=== PATIENT | male | born 1930 | race Caucasian/White ===

== ENCOUNTER 2016-04-17 09:51 | Emergency (ER) | payer MEDICARE, OTHER ==
[~2016-04-17] VITALS: Ht 165.1 cm; Wt 56.7 kg
[~2016-04-17 09:51] MED LIST: AMOX-263 PO; ASPI-498 PO; CLOP75TA28 PO; DILT-11 PO; FENO145T20 PO; FER325T PO; FLUT250M2 IN; FURO80TA PO; GLIP-116 PO; LIS5T PO; MET50T PO; OMEP20CA5 PO; POT20T PO; POTA20TA53 PO; SIMV-13 PO; [UNRECOGNIZED DRUG - CODE] OR
[2016-04-17 11:00] VITALS: BP 141/62
== END 2016-04-17 11:30 | disposition home or self-care (01) ==
LOC: ER 09:51
DX: N39.0 Urinary tract infection, site not specified (principal); N48.1 Balanitis; I50.9 Heart failure, unspecified; N18.9 Chronic kidney disease, unspecified; I13.0 Hypertensive heart and chronic kidney disease with heart failure and stage 1 through stage 4 chronic kidney disease, or unspecified chronic kidney disease; E11.22 Type 2 diabetes mellitus with diabetic chronic kidney disease; Z79.899 Other long term (current) drug therapy; Z79.82 Long term (current) use of aspirin; F17.210 Nicotine dependence, cigarettes, uncomplicated

== ENCOUNTER 2016-07-10 20:30 | Emergency (ER) | payer MEDICARE, OTHER ==
[~2016-07-10] VITALS: Ht 165.1 cm; Wt 56.7 kg
[2016-07-10 20:42] VITALS: BP 136/66
[2016-07-10 21:18] LABS: Basophils # (auto) 0 uL; Basophils % (auto) 0.2 % (0.0-2.0); Eosinophils # (auto) 0.2 uL; Eosinophils % (auto) 2.6 % (0.0-7.0); Hematocrit 40.8 % (41.0-53.0); Hemoglobin 13.7 g/dL (13.5-17.5); Lymphocytes % (auto) 24.8 % (10.0-50.0); Mean Corpuscular Hgb Conc. 33.6 g/dL (32.0-36.0); Mean Corpuscular Volume 89.2 fL (80.0-100.0); Mean Platelet Volume 8.2 fL (7.4-10.4); Monocytes # (auto) 0.6 uL; Monocytes % (auto) 7.4 % (0.0-12.0); Neutrophils # (auto) 5.2 uL; Platelet Count (auto) 353 10^3/uL (140-450); Red Cell Distribution Width 16.2 % (11.6-16.0); White Blood Cell 8.1 10^3/uL (4.4-10.8)
[2016-07-10 21:41] LABS: Albumin 3.2 g/dL (3.4-5.0); Calcium 8.7 mg/dL (8.5-10.1); Potassium 4.1 mmol/L (3.5-5.1)
[2016-07-10 21:44] LABS: Bilirubin, Total 0.3 mg/dL (0.2-1.0); Total Protein 8.6 g/dL (6.4-8.2)
== END 2016-07-11 01:39 | disposition left against medical advice (07) ==
LOC: ER 20:34
DX: T83.9XXA Unspecified complication of genitourinary prosthetic device, implant and graft, initial encounter (principal); I13.0 Hypertensive heart and chronic kidney disease with heart failure and stage 1 through stage 4 chronic kidney disease, or unspecified chronic kidney disease; N18.9 Chronic kidney disease, unspecified; I50.9 Heart failure, unspecified; J44.9 Chronic obstructive pulmonary disease, unspecified; E11.9 Type 2 diabetes mellitus without complications; I25.2 Old myocardial infarction; F17.210 Nicotine dependence, cigarettes, uncomplicated; Z90.49 Acquired absence of other specified parts of digestive tract; Z53.29 Procedure and treatment not carried out because of patient's decision for other reasons
CPT/HCPCS: 36415; 80053; 85025

== ENCOUNTER 2017-04-05 15:21 | Inpatient (IN) | payer OTHER ==
[~2017-04-05] VITALS: Ht 165.1 cm; Wt 50.3 kg
[~2017-04-05 15:21] MED LIST changes: -FENO145T20 PO; +FENO1TAB42 PO; -OMEP20CA5 PO; +OMEP20CA74 PO
[2017-04-05] MEDS ORDERED: SODIUM CHLORIDE 0.9% 1,000 ML IV ONE (15:53)
[2017-04-05] MEDS ORDERED: cefTRIAXone 1GM/10ml IVPUSH 10 ML IV ONE (16:00)
[2017-04-05] MEDS ORDERED: methylPREDNISolone SOD SUCC 125 MG/2 ML VL IV ONE (16:00)
[2017-04-05] MEDS ORDERED: InsuLIN REG 1unit/0.01ml Soln (100units/ml) IV ONE (16:15)
[2017-04-05 17:42] LABS: Basophils # (auto) 0.1 uL; Basophils % (auto) 1.2 % (0.0-2.0); Eosinophils # (auto) 0 uL; Eosinophils % (auto) 0.5 % (0.0-7.0); Hematocrit 37.4 % (41.0-53.0); Hemoglobin 12.8 g/dL (13.5-17.5); Lymphocytes # (auto) 1.6 uL; Lymphocytes % (auto) 19.6 % (10.0-50.0); Mean Corpuscular Hemoglobin 30.4 pg (28.0-32.0); Mean Corpuscular Hgb Conc. 34.3 g/dL (32.0-36.0); Mean Corpuscular Volume 88.6 fL (80.0-100.0); Monocytes # (auto) 0.6 uL; Monocytes % (auto) 7.5 % (0.0-12.0); Neutrophils % (auto) 71.2 % (37.0-80.0); Nucleated Red Blood Cells % 0.3 %; Platelet Count (auto) 227 10^3/uL (140-450); Red Blood Cells 4.22 10^6/uL (4.5-5.90); White Blood Cell 8.4 10^3/uL (4.4-10.8)
[2017-04-05 17:57] LABS: INR 1.05 (0.9-1.15); Partial Thromboplastin Time 27.7 sec (22.64-33.71); Prothrombin Time 11.5 sec (9.37-12.3)
[2017-04-05 18:05] LABS: Alanine Aminotransferase 13 U/L (16-61); Albumin 2.8 g/dL (3.4-5.0); Alkaline Phosphatase 72 U/L (45-117); Anion Gap 8 (5-15); Aspartate Aminotransferase 13 U/L (15-37); BUN/Creatinine Ratio 26.8; Bilirubin, Total 0.3 mg/dL (0.2-1.0); Blood Urea Nitrogen 34 mg/dL (7-18); Calcium 8.6 mg/dL (8.5-10.1); Carbon Dioxide 27 mmol/L (21-32); Chloride 101 mmol/L (98-107); GFR African American 69 mL/min; GFR Non-African American 57 mL/min; Glucose 357 mg/dL (74-106); Sodium 136 mmol/L (136-145); Total Protein 7.4 g/dL (6.4-8.2)
[2017-04-05 18:09] LABS: Potassium 2.9 mmol/L (3.5-5.1)
[2017-04-05] MEDS ORDERED: POTASSIUM CHL 10% (20 MEQ/15ML) 15ml ORAL SOLN PO ONE (18:30)
[2017-04-05] MEDS ORDERED: IPRATROPIUM BROM 0.5 MG/2.5ML INH SOL NEB ONE (18:45)
[2017-04-05] MEDS ORDERED: ALBUTEROL SULF 2.5 MG/0.5ML(0.5%) NEB SOLN NEB ONE (18:45)
[2017-04-05] MEDS ORDERED: LACTULOSE 20Gm/30ML SOLN PO PRN (19:15)
[2017-04-05] MEDS ORDERED: PROMETHAZINE HCL 25 MG/ML 1ML IV PRN (19:15)
[2017-04-05] MEDS ORDERED: ALBUTEROL SULF 2.5 MG/0.5ML(0.5%) NEB SOLN NEB PRN (19:15)
[2017-04-05] MEDS ORDERED: MORPHINE SULFATE 10 MG/ML INJ 1ML SDV IV PRN ×2 (19:15)
[2017-04-05] MEDS ORDERED: NITROGLYCERIN 0.4 MG SL TAB SL PRN (19:15)
[2017-04-05] MEDS ORDERED: LORazepam 0.5 MG TAB PO PRN (19:15)
[2017-04-05] MEDS ORDERED: DEXTROSE (50%) 50ML SYRG IV PRN (19:15)
[2017-04-05] MEDS ORDERED: HYDROcodone-ACET 5/325MG TAB PO PRN (19:15)
[2017-04-05] MEDS ORDERED: ACETAMINOPHEN 500 MG TAB PO PRN (19:15)
[2017-04-05] MEDS ORDERED: TEMAZEPAM 15 MG CAP PO PRN (19:15)
[2017-04-05] MEDS: SODIUM CHLORIDE 0.9% 1,000 ML IV SCH (19:30)
[2017-04-05] MEDS ORDERED: OSELTAMIVIR 30 MG CAP PO ONE (19:45)
[2017-04-05] MEDS ORDERED: ASPirin 81 mg TAB PO ONE (19:45)
[2017-04-05] MEDS: DOXYCYCLINE HYC 100MG/250ML 250 ML IV SCH (19:45)
[2017-04-05] MEDS: ACCU-CHEK COMFORT CURVE STRIP VI SCH (20:30)
[2017-04-05] MEDS: InsuLIN REG 1unit/0.01ml Soln (100units/ml) SC SCH (20:53)
[2017-04-05 21:00] VITALS: BP 126/64
[2017-04-05] MEDS: ENOXAPARIN SOD 40 MG/0.4 ML SYRINGE SC SCH (21:00)
[2017-04-05 21:54] VITALS: BP 126/64
[2017-04-05] MEDS ORDERED: InsuLIN REG 1unit/0.01ml Soln (100units/ml) SC SCH (22:00)
[2017-04-05] MEDS: methylPREDNISolone SOD SUCC 40 MG/ML VL IV SCH (22:00)
[2017-04-06] VITALS (8 sets, daily range): BP systolic 126–144; BP diastolic 52–74
[2017-04-06] MEDS ORDERED: methylPREDNISolone SOD SUCC 40 MG/ML VL IV SCH
[2017-04-06] MEDS: ACCU-CHEK COMFORT CURVE STRIP VI SCH ×7 (00:23→23:56)
[2017-04-06] MEDS: ALBUTEROL SULF 2.5 MG/0.5ML(0.5%) NEB SOLN NEB SCH ×4 (01:15→18:00)
[2017-04-06] MEDS: IPRATROPIUM BROM 0.5 MG/2.5ML INH SOL NEB SCH ×4 (01:15→18:00)
[2017-04-06] MEDS: InsuLIN REG 1unit/0.01ml Soln (100units/ml) SC SCH ×6 (04:00→20:00)
[2017-04-06] MEDS: DOXYCYCLINE HYC 100MG/250ML 250 ML IV SCH (09:13)
[2017-04-06] MEDS: ASPirin 81 mg TAB PO SCH (09:13)
[2017-04-06] MEDS: SODIUM CHLORIDE 0.9% 1,000 ML IV SCH (09:14)
[2017-04-06] MEDS: methylPREDNISolone SOD SUCC 40 MG/ML VL IV SCH ×2 (09:15→21:49)
[2017-04-06] MEDS ORDERED: OSELTAMIVIR 30 MG CAP PO SCH (10:00)
[2017-04-06] MEDS ORDERED: LISINOPRIL 5 MG TAB PO ONE (12:00)
[2017-04-06] MEDS ORDERED: INSULIN DETEMIR(LEVEMIR) 1unit/0.01ml Soln (100units/ml) SC ONE (12:00)
[2017-04-06 13:00] LABS: BUN/Creatinine Ratio 27.1; Calcium 8.2 mg/dL (8.5-10.1); Potassium 3.8 mmol/L (3.5-5.1)
[2017-04-06] MEDS: glipiZIDE 5 MG TAB PO SCH (17:30)
[2017-04-06] MEDS: metFORMIN HYDROCHLORIDE 500 MG TAB PO SCH (17:31)
[2017-04-06] MEDS: DOXYCYCLINE 100 MG TAB/CAP PO SCH (21:49)
[2017-04-06] MEDS: ENOXAPARIN SOD 40 MG/0.4 ML SYRINGE SC SCH (21:50)
[2017-04-06] MEDS ORDERED: INSULIN DETEMIR(LEVEMIR) 1unit/0.01ml Soln (100units/ml) SC SCH (22:00)
[2017-04-07] MEDS: InsuLIN REG 1unit/0.01ml Soln (100units/ml) SC SCH ×4 (00:05→11:57)
[2017-04-07] MEDS: ACCU-CHEK COMFORT CURVE STRIP VI SCH ×3 (04:18→11:56)
[2017-04-07 05:00] VITALS: BP 126/57
[2017-04-07] MEDS: IPRATROPIUM BROM 0.5 MG/2.5ML INH SOL NEB SCH ×2 (05:58)
[2017-04-07] MEDS: ALBUTEROL SULF 2.5 MG/0.5ML(0.5%) NEB SOLN NEB SCH ×2 (05:58)
[2017-04-07] MEDS: glipiZIDE 5 MG TAB PO SCH (06:59)
[2017-04-07] MEDS: metFORMIN HYDROCHLORIDE 500 MG TAB PO SCH (08:00)
[2017-04-07 08:25] VITALS: BP 147/71
[2017-04-07] MEDS ORDERED: LISINOPRIL 5 MG TAB PO SCH (10:00)
[2017-04-07] MEDS: DOXYCYCLINE 100 MG TAB/CAP PO SCH (10:24)
[2017-04-07] MEDS: methylPREDNISolone SOD SUCC 40 MG/ML VL IV SCH (10:26)
[2017-04-07] MEDS: ASPirin 81 mg TAB PO SCH (10:26)
[2017-04-07] MEDS ORDERED: DOX100T PO (11:06)
[2017-04-07] MEDS ORDERED: METF500T PO (11:08)
[2017-04-07] MEDS ORDERED: PRE1T PO (11:09)
[2017-04-07 12:54] VITALS: BP 146/90
[2017-04-07 13:42] VITALS: BP 133/79
== END 2017-04-07 13:25 | disposition home or self-care (01) | DRG 637 ==
LOC: ER 15:27 → TELE 15:28 → TELE-CENTR 21:05 → CENTRAL 04-06 13:01
PROVIDERS: ADMIT Internal Medicine; ATTEND Internal Medicine
DX: E11.65 Type 2 diabetes mellitus with hyperglycemia (principal); J96.20 Acute and chronic respiratory failure, unspecified whether with hypoxia or hypercapnia; E44.0 Moderate protein-calorie malnutrition; J44.1 Chronic obstructive pulmonary disease with (acute) exacerbation; I13.0 Hypertensive heart and chronic kidney disease with heart failure and stage 1 through stage 4 chronic kidney disease, or unspecified chronic kidney disease; I50.32 Chronic diastolic (congestive) heart failure; Z68.1 Body mass index [BMI] 19.9 or less, adult; J84.10 Pulmonary fibrosis, unspecified; E11.22 Type 2 diabetes mellitus with diabetic chronic kidney disease; E87.6 Hypokalemia; F17.210 Nicotine dependence, cigarettes, uncomplicated; I25.10 Atherosclerotic heart disease of native coronary artery without angina pectoris; N18.9 Chronic kidney disease, unspecified; I25.2 Old myocardial infarction; Z82.3 Family history of stroke; Z85.828 Personal history of other malignant neoplasm of skin; Z90.49 Acquired absence of other specified parts of digestive tract
CPT/HCPCS: 36415; 71250; 80048; 80053; 82550; 82962; 83036; 83880; 84484; 85025; 85379; 85610; 85652; 85730; 86141; 87040; 87081; 87400; 93005; 94640; 96361; 96374; 96375; G9035; J1815; J3490

== ENCOUNTER 2017-06-01 11:15 | Inpatient (IN) | payer OTHER ==
[~2017-06-01] VITALS: Ht 165.1 cm; Wt 49.2 kg
[~2017-06-01 11:15] MED LIST changes: -AMOX-263 PO; +DOX100T PO; +METF500T PO; +PRE1T PO
[2017-06-01 11:51] LABS: Basophils # (auto) 0.1 uL; Eosinophils # (auto) 0.1 uL; Lymphocytes % (auto) 8.6 % (10.0-50.0); Monocytes # (auto) 0.8 uL; Monocytes % (auto) 6.8 % (0.0-12.0); Neutrophils # (auto) 9.4 uL
[2017-06-01 11:53] LABS: Basophils % (auto) 0.5 % (0.0-2.0); Eosinophils % (auto) 0.7 % (0.0-7.0); Hematocrit 32.2 % (41.0-53.0); Mean Corpuscular Volume 83.7 fL (80.0-100.0); Neutrophils % (auto) 83.4 % (37.0-80.0); Platelet Count (auto) 322 10^3/uL (140-450); Red Blood Cells 3.85 10^6/uL (4.5-5.90); Red Cell Distribution Width 17.7 % (11.8-14.3); White Blood Cell 11.3 10^3/uL (4.4-10.8)
[2017-06-01] MEDS ORDERED: cefTRIAXone 1GM/10ml IVPUSH 10 ML IV ONE (12:00)
[2017-06-01] MEDS ORDERED: IPRATROPIUM BROM 0.5 MG/2.5ML INH SOL HHN ONE (12:00)
[2017-06-01] MEDS ORDERED: methylPREDNISolone SOD SUCC 125 MG/2 ML VL IV ONE (12:00)
[2017-06-01] MEDS ORDERED: ALBUTEROL SULF 2.5 MG/0.5ML(0.5%) NEB SOLN HHN ONE (12:00)
[2017-06-01 12:02] LABS: Albumin 2.9 g/dL (3.4-5.0); BUN/Creatinine Ratio 25.2; Calcium 9.6 mg/dL (8.5-10.1); Potassium 5.1 mmol/L (3.5-5.1)
[2017-06-01 12:09] LABS: Bilirubin, Total 0.7 mg/dL (0.2-1.0); Total Protein 7.8 g/dL (6.4-8.2)
[2017-06-01] MEDS ORDERED: ASPirin-EC 81 mg tab PO ONE (12:45)
[2017-06-01] MEDS ORDERED: LORazepam 0.5 MG TAB PO PRN (13:00)
[2017-06-01] MEDS ORDERED: OSELTAMIVIR 75 MG CAP PO ONE (13:00)
[2017-06-01] MEDS ORDERED: ACETAMINOPHEN 500 MG TAB PO PRN (13:00)
[2017-06-01] MEDS ORDERED: MILK OF MAGNESIA 30ML SUSP PO PRN (13:00)
[2017-06-01] MEDS ORDERED: DEXTROSE (50%) 50ML SYRG IV PRN (13:00)
[2017-06-01] MEDS ORDERED: PROMETHAZINE HCL 25 MG/ML 1ML IV PRN (13:00)
[2017-06-01] MEDS ORDERED: HYDROcodone-ACET 5/325MG TAB PO PRN (13:00)
[2017-06-01] MEDS ORDERED: NITROGLYCERIN 0.4 MG SL TAB SL PRN (13:00)
[2017-06-01] MEDS ORDERED: ALBUTEROL SULF 2.5 MG/0.5ML(0.5%) NEB SOLN NEB PRN (13:00)
[2017-06-01] MEDS ORDERED: MORPHINE SULFATE 4 MG/ML SYR/VIAL IV PRN ×2 (13:00)
[2017-06-01] MEDS ORDERED: TEMAZEPAM 15 MG CAP PO PRN (13:00)
[2017-06-01 13:29] LABS: Lactic Acid w/Reflex 3.2 mmol/L (0.4-2.0)
[2017-06-01] MEDS ORDERED: METOPROLOL TARTRATE 50 MG TAB PO ONE (13:30)
[2017-06-01] MEDS: SODIUM CHLOR 0.9% PF (SALINE LOCK) 10ML VIAL IV SCH ×2 (14:00→21:56)
[2017-06-01] MEDS: AZITHROMYCIN 500MG/ 250ML 250 ML IV SCH (14:01)
[2017-06-01 15:00] LABS: Urine Bacteria FEW /hpf (None Seen); Urine Blood 1+ /uL (Negative); Urine Specific Gravity 1.015 (1.001-1.035); Urine WBC 480 /hpf (0 - 3); Urine WBC Clumps PRESENT /hpf (None Seen)
[2017-06-01 16:02] VITALS: BP 159/81
[2017-06-01] MEDS: ACCU-CHEK COMFORT CURVE STRIP VI SCH ×2 (16:23→21:54)
[2017-06-01] MEDS: InsuLIN REG 1unit/0.01ml Soln (100units/ml) SC SCH ×2 (16:25→20:30)
[2017-06-01 17:24] VITALS: BP 147/80
[2017-06-01] MEDS ORDERED: PATIENTS OWN MEDICATION (Simvastatin 1 TAB) PO SCH (18:00)
[2017-06-01] MEDS: FUROSEMIDE 40 MG/4 ML VIAL IV SCH (18:04)
[2017-06-01] MEDS: FERROUS SULFATE 325 MG TAB PO SCH (18:04)
[2017-06-01] MEDS: glipiZIDE 5 MG TAB PO SCH (18:04)
[2017-06-01] MEDS ORDERED: HYDR-4683 PO (18:46)
[2017-06-01] MEDS ORDERED: METF-372 PO (18:46)
[2017-06-01] MEDS ORDERED: DIAZ10TA3 PO (18:46)
[2017-06-01] MEDS ORDERED: ACIT25CA2 PO (18:46)
[2017-06-01] MEDS: ALBUTEROL SULF 2.5 MG/0.5ML(0.5%) NEB SOLN NEB SCH (18:50)
[2017-06-01] MEDS: IPRATROPIUM BROM 0.5 MG/2.5ML INH SOL NEB SCH (18:50)
[2017-06-01] MEDS: BUDESONIDE (INHALATION) 0.5 MG/2 ML NEB NEB SCH (18:52)
[2017-06-01] MEDS ORDERED: HEPARIN DRIP/D5W 100UNITS/ML 250 ML IV SCH (18:58)
[2017-06-01] MEDS ORDERED: HEPARIN SODIUM (PORCINE) 5000 UNITS/ML 1ML VIAL IV ONE (19:00)
[2017-06-01 19:36] LABS: Basophils # (auto) 0 uL; Eosinophils # (auto) 0 uL; Hemoglobin 9.4 g/dL (13.5-17.5); Lymphocytes # (auto) 0.4 uL; Lymphocytes % (auto) 5.6 % (10.0-50.0); Monocytes # (auto) 0.1 uL; White Blood Cell 6.6 10^3/uL (4.4-10.8)
[2017-06-01 19:38] LABS: Basophils % (auto) 0.3 % (0.0-2.0); Hematocrit 28.9 % (41.0-53.0); Mean Corpuscular Hgb Conc. 32.5 g/dL (32.0-36.0); Mean Corpuscular Volume 83.1 fL (80.0-100.0); Monocytes % (auto) 1.6 % (0.0-12.0); Neutrophils # (auto) 6.1 uL; Neutrophils % (auto) 92.5 % (37.0-80.0); Nucleated Red Blood Cells % 0.1 %; Platelet Count (auto) 272 10^3/uL (140-450); Red Blood Cells 3.48 10^6/uL (4.5-5.90); Red Cell Distribution Width 17.7 % (11.8-14.3)
[2017-06-01 19:42] LABS: INR 1.12 (0.9-1.15); Partial Thromboplastin Time 29.2 sec (22.64-33.71); Prothrombin Time 12.2 sec (9.37-12.3)
[2017-06-01 19:53] VITALS: BP 139/76
[2017-06-01] MEDS: PRAVASTATIN SODIUM 20 MG TAB PO SCH (21:56)
[2017-06-01] MEDS ORDERED: OSELTAMIVIR 75 MG CAP PO SCH (22:00)
[2017-06-01] MEDS ORDERED: PATIENTS OWN MEDICATION (Glipizide 10 MG) PO SCH (22:00)
[2017-06-01] MEDS ORDERED: PATIENTS OWN MEDICATION (Fluticasone-Salmeterol (Advair Diskus 250/50) 1 PUFF) IN SCH (22:00)
[2017-06-01] MEDS: METOPROLOL TARTRATE 50 MG TAB PO SCH (22:09)
[2017-06-01] MEDS: methylPREDNISolone SOD SUCC 40 MG/ML VL IV SCH (23:58)
[2017-06-02] VITALS (12 sets, daily range): BP systolic 100–144; BP diastolic 43–100
[2017-06-02] MEDS: ACCU-CHEK COMFORT CURVE STRIP VI SCH ×6 (00:01→20:41)
[2017-06-02] MEDS: InsuLIN REG 1unit/0.01ml Soln (100units/ml) SC SCH ×6 (00:03→20:15)
[2017-06-02] MEDS: IPRATROPIUM BROM 0.5 MG/2.5ML INH SOL NEB SCH ×4 (00:15→19:09)
[2017-06-02] MEDS: ALBUTEROL SULF 2.5 MG/0.5ML(0.5%) NEB SOLN NEB SCH ×4 (00:15→19:08)
[2017-06-02] MEDS: BUDESONIDE (INHALATION) 0.5 MG/2 ML NEB NEB SCH ×2 (06:11→19:09)
[2017-06-02] MEDS: glipiZIDE 5 MG TAB PO SCH ×2 (06:13→17:53)
[2017-06-02] MEDS: FUROSEMIDE 40 MG/4 ML VIAL IV SCH ×2 (06:13→17:52)
[2017-06-02] MEDS: SODIUM CHLOR 0.9% PF (SALINE LOCK) 10ML VIAL IV SCH ×3 (06:13→22:08)
[2017-06-02 06:16] LABS: Albumin 2.5 g/dL (3.4-5.0); BUN/Creatinine Ratio 34.1; Bilirubin, Total 0.4 mg/dL (0.2-1.0); Calcium 8.8 mg/dL (8.5-10.1); Potassium 3.6 mmol/L (3.5-5.1); Total Protein 6.8 g/dL (6.4-8.2)
[2017-06-02 06:34] LABS: Basophils # (auto) 0 uL; Basophils % (auto) 0.2 % (0.0-2.0); Eosinophils # (auto) 0 uL; Lymphocytes # (auto) 0.8 uL; Lymphocytes % (auto) 11.7 % (10.0-50.0); Monocytes # (auto) 0.2 uL; Monocytes % (auto) 3.1 % (0.0-12.0); Neutrophils # (auto) 5.6 uL; Nucleated Red Blood Cells % 0.1 %; White Blood Cell 6.6 10^3/uL (4.4-10.8)
[2017-06-02 06:35] LABS: Hematocrit 27.8 % (41.0-53.0); Hemoglobin 9.1 g/dL (13.5-17.5); Mean Corpuscular Hemoglobin 26.7 pg (28.0-32.0); Mean Corpuscular Hgb Conc. 32.6 g/dL (32.0-36.0); Mean Corpuscular Volume 81.8 fL (80.0-100.0); Platelet Count (auto) 252 10^3/uL (140-450); Red Cell Distribution Width 17.6 % (11.8-14.3)
[2017-06-02] MEDS: FERROUS SULFATE 325 MG TAB PO SCH ×2 (08:00→17:53)
[2017-06-02] MEDS: cefTRIAXone 1GM/10ml IVPUSH 10 ML IV SCH (09:20)
[2017-06-02] MEDS: PANTOPRAZOLE 40 MG TAB PO SCH (09:21)
[2017-06-02] MEDS: METOPROLOL TARTRATE 50 MG TAB PO SCH ×2 (09:21→22:08)
[2017-06-02] MEDS ORDERED: DILTIAZEM HCL 120MG ER CAP PO SCH ×2 (10:00)
[2017-06-02] MEDS ORDERED: DILTIAZEM HCL 180MG ER CAP PO SCH (10:00)
[2017-06-02] MEDS: ASPirin-EC 81 mg tab PO SCH (10:00)
[2017-06-02] MEDS ORDERED: OMEPRAZOLE 20MG/10ML ORAL SUSP PO SCH (10:00)
[2017-06-02] MEDS: CLOPIDOGREL BISULFATE 75 MG TAB PO SCH (10:00)
[2017-06-02] MEDS: POTASSIUM CHL 20 Meq TABLET PO SCH ×2 (10:00→21:59)
[2017-06-02] MEDS: LISINOPRIL 5 MG TAB PO SCH (10:00)
[2017-06-02] MEDS: AZITHROMYCIN 500MG/ 250ML 250 ML IV SCH (10:00)
[2017-06-02] MEDS: Fenofibrate 145MG TAB PO SCH (10:00)
[2017-06-02] MEDS ORDERED: LISINOPRIL 5 MG TAB PO SCH (10:00)
[2017-06-02 10:51] LABS: INR 1.09 (0.9-1.15); Partial Thromboplastin Time 41.3 sec (22.64-33.71); Prothrombin Time 11.9 sec (9.37-12.3)
[2017-06-02] MEDS ORDERED: IODIXANOL 320MG/ML 100ML BTL IV ONE (10:51)
[2017-06-02] MEDS ORDERED: LIDOCAINE HCL 2 %PF INJ 10ML AMP IJ ONE (10:53)
[2017-06-02] MEDS ORDERED: fentaNYL CITRATE 100 MCG/2 ML VL ONE (11:22)
[2017-06-02] MEDS ORDERED: SODIUM CHL 0.9% 0 ML ONE (11:22)
[2017-06-02] MEDS ORDERED: MIDAZOLAM HCL 1MG/1ML-2 ML VIAL ONE (11:22)
[2017-06-02] MEDS ORDERED: ANGIOMAX 250 MG VIAL IV ONE (11:24)
[2017-06-02] MEDS ORDERED: VERAPAMIL 2.5MG/ML INJ 2ML VIAL IV ONE (11:36)
[2017-06-02] MEDS: methylPREDNISolone SOD SUCC 40 MG/ML VL IV SCH (12:00)
[2017-06-02] MEDS ORDERED: IOHEXOL 350 MG/ML 100ML IJ ONE (12:46)
[2017-06-02] MEDS ORDERED: CLOPIDOGREL 300 MG TAB ONE (13:18)
[2017-06-02] MEDS: PRAVASTATIN SODIUM 20 MG TAB PO SCH (21:59)
[2017-06-03] VITALS (7 sets, daily range): BP systolic 110–124; BP diastolic 48–78
[2017-06-03] MEDS: ACCU-CHEK COMFORT CURVE STRIP VI SCH ×5 (00:18→16:00)
[2017-06-03] MEDS: InsuLIN REG 1unit/0.01ml Soln (100units/ml) SC SCH ×5 (00:18→16:47)
[2017-06-03] MEDS: methylPREDNISolone SOD SUCC 40 MG/ML VL IV SCH ×2 (00:18→12:02)
[2017-06-03] MEDS: FUROSEMIDE 40 MG/4 ML VIAL IV SCH (06:24)
[2017-06-03] MEDS: SODIUM CHLOR 0.9% PF (SALINE LOCK) 10ML VIAL IV SCH ×2 (06:24→14:00)
[2017-06-03 06:36] LABS: BUN/Creatinine Ratio 34.1; Calcium 8.6 mg/dL (8.5-10.1); Potassium 3.5 mmol/L (3.5-5.1)
[2017-06-03] MEDS: IPRATROPIUM BROM 0.5 MG/2.5ML INH SOL NEB SCH ×3 (06:41→11:15)
[2017-06-03] MEDS: ALBUTEROL SULF 2.5 MG/0.5ML(0.5%) NEB SOLN NEB SCH ×3 (06:42→11:15)
[2017-06-03] MEDS: BUDESONIDE (INHALATION) 0.5 MG/2 ML NEB NEB SCH (06:42)
[2017-06-03] MEDS: glipiZIDE 5 MG TAB PO SCH (06:49)
[2017-06-03] MEDS: FERROUS SULFATE 325 MG TAB PO SCH (08:11)
[2017-06-03 09:12] LABS: Basophils # (auto) 0 uL; Eosinophils # (auto) 0 uL; Monocytes # (auto) 0.1 uL; Nucleated Red Blood Cells % 0.1 %; White Blood Cell 8.3 10^3/uL (4.4-10.8)
[2017-06-03 09:16] LABS: Hematocrit 28.6 % (41.0-53.0); Hemoglobin 9.3 g/dL (13.5-17.5); Lymphocytes # (auto) 0.5 uL; Lymphocytes % (auto) 5.9 % (10.0-50.0); Mean Corpuscular Hemoglobin 26.5 pg (28.0-32.0); Mean Corpuscular Hgb Conc. 32.7 g/dL (32.0-36.0); Mean Corpuscular Volume 81.1 fL (80.0-100.0); Monocytes % (auto) 1.5 % (0.0-12.0); Neutrophils # (auto) 7.6 uL; Neutrophils % (auto) 92.6 % (37.0-80.0); Platelet Count (auto) 292 10^3/uL (140-450); Red Blood Cells 3.52 10^6/uL (4.5-5.90); Red Cell Distribution Width 17.9 % (11.8-14.3)
[2017-06-03] MEDS: AZITHROMYCIN 500MG/ 250ML 250 ML IV SCH (09:59)
[2017-06-03] MEDS: cefTRIAXone 1GM/10ml IVPUSH 10 ML IV SCH (09:59)
[2017-06-03] MEDS: POTASSIUM CHL 20 Meq TABLET PO SCH (10:00)
[2017-06-03] MEDS: PANTOPRAZOLE 40 MG TAB PO SCH (10:00)
[2017-06-03] MEDS: METOPROLOL TARTRATE 50 MG TAB PO SCH (10:00)
[2017-06-03] MEDS: Fenofibrate 145MG TAB PO SCH (10:00)
[2017-06-03] MEDS: CLOPIDOGREL BISULFATE 75 MG TAB PO SCH (10:00)
[2017-06-03] MEDS: ASPirin-EC 81 mg tab PO SCH (10:00)
[2017-06-03] MEDS: LISINOPRIL 5 MG TAB PO SCH (10:00)
== END 2017-06-03 18:55 | disposition hospice, home (50) | DRG 246 ==
LOC: EDBD 11:15 → ER 11:15 → OVERFLOW 11:16 → DOU IN ICU 16:56
PROVIDERS: ADMIT Internal Medicine; ATTEND Family Medicine
PROC: 027036Z Dilation of Coronary Artery, One Artery with Three Drug-eluting Intraluminal Devices, Percutaneous Approach (ICD-10-PCS; principal; 2017-06-02)
PROC: 4A023N7 Measurement of Cardiac Sampling and Pressure, Left Heart, Percutaneous Approach (ICD-10-PCS; 2017-06-02)
PROC: B2111ZZ Fluoroscopy of Multiple Coronary Arteries using Low Osmolar Contrast (ICD-10-PCS; 2017-06-02)
PROC: B2151ZZ Fluoroscopy of Left Heart using Low Osmolar Contrast (ICD-10-PCS; 2017-06-02)
DX: I21.4 Non-ST elevation (NSTEMI) myocardial infarction (principal); J96.20 Acute and chronic respiratory failure, unspecified whether with hypoxia or hypercapnia; I50.33 Acute on chronic diastolic (congestive) heart failure; J84.9 Interstitial pulmonary disease, unspecified; E46 Unspecified protein-calorie malnutrition; I13.0 Hypertensive heart and chronic kidney disease with heart failure and stage 1 through stage 4 chronic kidney disease, or unspecified chronic kidney disease; J44.0 Chronic obstructive pulmonary disease with (acute) lower respiratory infection; Z68.1 Body mass index [BMI] 19.9 or less, adult; E11.22 Type 2 diabetes mellitus with diabetic chronic kidney disease; E11.51 Type 2 diabetes mellitus with diabetic peripheral angiopathy without gangrene; E11.65 Type 2 diabetes mellitus with hyperglycemia; F17.210 Nicotine dependence, cigarettes, uncomplicated; D50.9 Iron deficiency anemia, unspecified; I25.10 Atherosclerotic heart disease of native coronary artery without angina pectoris; E78.5 Hyperlipidemia, unspecified; N18.9 Chronic kidney disease, unspecified; Y82.9 Unspecified medical devices associated with adverse incidents; Y83.8 Other surgical procedures as the cause of abnormal reaction of the patient, or of later complication, without mention of misadventure at the time of the procedure; Z51.5 Encounter for palliative care; J84.10 Pulmonary fibrosis, unspecified; Z66 Do not resuscitate; Z82.3 Family history of stroke; I25.2 Old myocardial infarction; Z82.49 Family history of ischemic heart disease and other diseases of the circulatory system; Z95.5 Presence of coronary angioplasty implant and graft; Z90.49 Acquired absence of other specified parts of digestive tract; Z85.828 Personal history of other malignant neoplasm of skin; Y92.89 Other specified places as the place of occurrence of the external cause
CPT/HCPCS: 36415; 36600; 71045; 80048; 80053; 80061; 81001; 82550; 82805; 82962; 83036; 83605; 83735; 83880; 84443; 84484; 85025; 85379; 85610; 85730; 86141; 87040; 87081; 87804; 92928; 93005; 93306; 93458; 94640; 94761; 96374; 96375; 99152; C1874; J1815; J2250; Q9967